=== PATIENT | male | born 1975 | race Caucasian/White ===

== ENCOUNTER 2019-06-20 14:01 | Emergency (ER) | payer OTHER, MEDICAID ==
[~2019-06-20] VITALS: Ht 160 cm; Wt 63.6 kg
[2019-06-20] MEDS ORDERED: IV NORMAL SALINE 1000ML BAG 1,000 ML IV SCH (14:28)
[2019-06-20] MEDS ORDERED: ONDANSETRON PF 4 MG/2 ML VIAL. IVP ONE (14:30)
--- NOTE | 2019-06-20 14:32 | PHYS DOC ---
Past Medical History Past Medical History: Hypothyroid Additional Past Medical Histor: Down syndrome Smoking: Cigarettes (The patient is a nonsmoker.) Adult General Chief Complaint Chief Complaint: SYNCOPE HPI HPI Patient is a 43-year-old male, with a history of Down's syndrome, who presents to the emergency room for evaluation. The patient's mother states that on Thursday he had some vomiting, but seemed okay since then, this morning he woke up and felt weak and lightheaded, and reportedly passed out. The patient's mother witnessed him fall to the ground, states he himself down gently, did not strike his head hard. She states he has not been quite himself today, seems a little off balance, and generally weak and fatigued. He is not in any fevers or chills, nasal congestion, diarrhea, does complain of some mild generalized abdominal discomfort. There are no alleviating or exacerbating factors to his symptoms. Review of Systems Review of Systems Constitutional: Denies fever or chills [] Eyes: Denies change in visual acuity, redness, or eye pain [] HENT: Denies nasal congestion or sore throat [] Respiratory: Denies cough or shortness of breath [] Cardiovascular: The patient denies any shortness of breath, chest pain, palpitations, or orthopnea[] GI: No additional information not addressed in HPI [] : Denies dysuria or hematuria [] Musculoskeletal: Denies back pain or joint pain [] Integument: Denies rash or skin lesions [] Neurologic: Denies focal weakness or sensory changes [] Endocrine: Denies polyuria or polydipsia [] All other systems were reviewed and found to be within normal limits, except as documented in this note. Current Medications Current Medications Current Medications Medications (Trade) Dose Ordered Sig/Vitor Start Time Stop Time Status Last Admin Dose Admin Ondansetron HCl (Zofran) 4 mg 1X ONCE 06/20/19 14:30 06/20/19 15:36 DC 06/20/19 15:43 4 MG Sodium Chloride 1,000 ml @ 1,000 mls/hr Q1H 06/20/19 14:28 06/20/19 15:36 DC 06/20/19 15:43 1,000 MLS/HR Allergies Allergies Allergies Coded Allergies Type Severity Reaction Last Updated Verified No Known Drug Allergies 06/20/19 No Physical Exam Physical Exam PHYSICAL EXAM: CONSTITUTIONAL: Well developed, well nourished HEAD: normocephalic, atraumatic EENT: PERRL, EOMI. Conjunctivae normal color, sclerae non-icteric; moist mucous membranes. NECK: Supple, non-tender; no meningismus.There is full, painless range of motion of the cervical spine, without any focal bony midline tenderness to palpation. LUNGS: Lungs CTA, breathing even and unlabored. Normal air movement. HEART: Regular rate and rhythm, no murmur CHEST: No deformity; non-tender ABDOMEN: The abdomen is soft, and non-tender, no masses or bruits. There is no reproducible abdominal tenderness to palpation. The abdominal exam is benign. EXTREM: Normal ROM; no deformity, no calf tenderness. Normal pulses palpable in all extremities. There is no pedal edema. SKIN: No rash; no diaphoresis NEURO: Alert; normal speech and cognition; CN's grossly intact; strength grossly intact without focal deficit. BACK: No CVA TTP.There is no bony tenderness to palpation of the thoracic or lumbar spine. Current Patient Data Vital Signs Vital Signs Date Time Temp Pulse Resp B/P (MAP) Pulse Ox O2 Delivery O2 Flow Rate FiO2 06/20/19 14:35 98.2 74 16 123/76 (92) 97 Room Air 98.2 Lab Values Laboratory Tests Test 06/20/19 15:27 06/20/19 15:48 White Blood Count 9.9 x10^3/uL (4.0-11.0) Red Blood Count 4.68 x10^6/uL (4.30-5.70) Hemoglobin 14.9 g/dL (13.0-17.5) Hematocrit 44.1 % (39.0-53.0) Mean Corpuscular Volume 94 fL (79-100) Mean Corpuscular Hemoglobin 32 pg (25-35) Mean Corpuscular Hemoglobin Concent 34 g/dL (31-37) Red Cell Distribution Width 14.6 % (11.5-14.5) H Platelet Count 242 x10^3/uL (140-400) Neutrophils (%) (Auto) 80 % (31-73) H Lymphocytes (%) (Auto) 14 % (24-48) L Monocytes (%) (Auto) 5 % (0-9) Eosinophils (%) (Auto) 0 % (0-3) Basophils (%) (Auto) 1 % (0-3) Neutrophils # (Auto) 7.9 x10^3/uL (1.8-7.7) H Lymphocytes # (Auto) 1.4 x10^3/uL (1.0-4.8) Monocytes # (Auto) 0.5 x10^3/uL (0.0-1.1) Eosinophils # (Auto) 0.0 x10^3/uL (0.0-0.7) Basophils # (Auto) 0.1 x10^3/uL (0.0-0.2) Sodium Level 141 mmol/L (136-145) Potassium Level 4.3 mmol/L (3.5-5.1) Chloride Level 104 mmol/L (98-107) Carbon Dioxide Level 29 mmol/L (21-32) Anion Gap 8 (6-14) Blood Urea Nitrogen 18 mg/dL (8-26) Creatinine 1.2 mg/dL (0.7-1.3) Estimated GFR (Cockcroft-Gault) 66.7 BUN/Creatinine Ratio 15 (6-20) Glucose Level 104 mg/dL (70-99) H Lactic Acid Level 1.5 mmol/L (0.4-2.0) Calcium Level 9.1 mg/dL (8.5-10.1) Magnesium Level 2.2 mg/dL (1.8-2.4) Total Bilirubin 2.1 mg/dL (0.2-1.0) H Aspartate Amino Transferase (AST) 31 U/L (15-37) Alanine Aminotransferase (ALT) 37 U/L (16-63) Alkaline Phosphatase 126 U/L (46-116) H Troponin I Quantitative < 0.017 ng/mL (0.000-0.055) Total Protein 6.9 g/dL (6.4-8.2) Albumin 3.2 g/dL (3.4-5.0) L Albumin/Globulin Ratio 0.9 (1.0-1.7) L Thyroid Stimulating Hormone (TSH) 1.218 uIU/mL (0.358-3.74) Free Thyroxine 1.71 ng/dL (0.76-1.46) H Influenza Type A Antigen Negative (NEGATIVE) Influenza Type B Antigen Negative (NEGATIVE) Urine Collection Type Unknown Urine Color Dk yellow Urine Clarity Clear Urine pH 6.0 Urine Specific [place] 1.025 Urine Protein Negative mg/dL (NEG-TRACE) Urine Glucose (UA) Negative mg/dL (NEG) Urine Ketones (Stick) Negative mg/dL (NEG) Urine Blood Negative (NEG) Urine Nitrite Negative (NEG) Urine Bilirubin Small (NEG) Urine Urobilinogen Dipstick 1.0 mg/dL (0.2 mg/dL) Urine Leukocyte Esterase Negative (NEG) Urine RBC Rare /HPF (0-2) Urine WBC 0 /HPF (0-4) Urine Squamous Epithelial Cells Occ /LPF Urine Bacteria 0 /HPF (0-FEW) Urine Mucus Mod /LPF Laboratory Tests 06/20/19 15:27 Laboratory Tests 06/20/19 15:27 EKG EKG normal sinus rhythm at a rate of 69 bpm, normal axis, normal intervals, nonspecific ST/T changes. Radiology/Procedures Radiology/Procedures PROCEDURE: PORTABLE CHEST 1V Study: PORTABLE CHEST 1V Indication: Syncope. Weakness. Comparison: None. Findings: Low lung volumes bilaterally with resultant bronchovascular crowding. No lobar infiltrate, pleural effusion or pneumothorax. Impression: No acute radiographic abnormality of the chest. [] PROCEDURE: CT HEAD WO CONTRAST CT HEAD WO CONTRAST History: Headache Comparison: None. Technique: Noncontrast CT imaging was performed of the head. Exposure: One or more of the following individualized dose reduction techniques were utilized for this examination: 1. Automated exposure control 2. Adjustment of the mA and/or kV according to patient size 3. Use of iterative reconstruction technique. Findings: No intracranial hemorrhage. No mass effect. No hydrocephalus. Cavum septum pellucidum and vergae. Posterior occipital scalp subcutaneous nodule measures 5 mm, likely epidermal inclusion cyst. Imaged orbits are unremarkable. Imaged paranasal sinuses and mastoid air cells are clear. No acute calvarial fracture. Impression: 1. No acute intracranial abnormality. Course & Med Decision Making Course & Med Decision Making Pertinent Labs and Imaging studies reviewed. (See chart for details) [] 5:15 PM: The patient's condition remains stable at this time. He is feeling better. His IV did infiltrate in his right forearm, was re-sited in his left arm, with confusion of the normal saline. She had approximately 100 mL out of his IV bag before infiltrated. I did discuss use of warm compresses with the patient's mother, the skin appears unremarkable. I discussed expectant management, the need for close PCP follow-up and return precautions. I discussed the importance of follow-up with the patient's PCP for recheck bilirubin. Dragon Disclaimer Dragon Disclaimer This electronic medical record was generated, in whole or in part, using a voice recognition dictation system. Departure Departure Impression: Primary Impression: Dizziness Disposition: HOME, SELF-CARE Condition: STABLE Referrals: GRISELDA BRAXTON MD (PCP) Patient Instructions: Dizziness, Syncope, Viral Syndrome Additional Instructions: Make sure you drink plenty of fluids and eat a full diet. Return to medical care for any new or worsening symptoms, development of increasing dizziness, lightheadedness, nausea, vomiting, fever, or any other new, or concerning symptoms. Your bilirubin was noted to be slightly elevated today, 2.1. Please follow-up with your primary care provider in the next 2-4 weeks, for recheck. ANGELA HARRY MD Jun 20, 2019 14:32
--- NOTE | 2019-06-20 14:49 | RAD ---
Study: PORTABLE CHEST 1V Indication: Syncope. Weakness. Comparison: None. Findings: Low lung volumes bilaterally with resultant bronchovascular crowding. No lobar infiltrate, pleural effusion or pneumothorax. Impression: No acute radiographic abnormality of the chest. Electronically signed by: SUREKHA LANDEROS MD (06/20/2019 2:45 PM) [facility] [email or web address]
--- NOTE | 2019-06-20 15:15 | RAD ---
CT HEAD WO CONTRAST History: Headache Comparison: None. Technique: Noncontrast CT imaging was performed of the head. Exposure: One or more of the following individualized dose reduction techniques were utilized for this examination: 1. Automated exposure control 2. Adjustment of the mA and/or kV according to patient size 3. Use of iterative reconstruction technique. Findings: No intracranial hemorrhage. No mass effect. No hydrocephalus. Cavum septum pellucidum and vergae. Posterior occipital scalp subcutaneous nodule measures 5 mm, likely epidermal inclusion cyst. Imaged orbits are unremarkable. Imaged paranasal sinuses and mastoid air cells are clear. No acute calvarial fracture. Impression: 1. No acute intracranial abnormality. Electronically signed by: Fransisco Ricks DO (06/20/2019 3:12 PM) [email or web address]
[2019-06-20 15:38] LABS: BASO # 0.1 x10^3/uL (0.0-0.2); BASO % 1 % (0-3); EOS % 0 % (0-3); HEMATOCRIT 44.1 % (39.0-53.0); HEMOGLOBIN 14.9 g/dL (13.0-17.5); LYMPH # 1.4 x10^3/uL (1.0-4.8); LYMPH % 14 % (24-48); MEAN CORPUSCULAR HEMOGLOBIN 32 pg (25-35); MEAN CORPUSCULAR HGB CONC 34 g/dL (31-37); MEAN CORPUSCULAR VOLUME 94 fL (79-100); MONO # 0.5 x10^3/uL (0.0-1.1); MONO % 5 % (0-9); NEUT # 7.9 x10^3/uL (1.8-7.7); NEUT % 80 % (31-73); PLATELET COUNT 242 x10^3/uL (140-400); RED BLOOD COUNT 4.68 x10^6/uL (4.30-5.70); RED CELL DISTRIBUTION WIDTH 14.6 % (11.5-14.5); WHITE BLOOD COUNT 9.9 x10^3/uL (4.0-11.0)
[2019-06-20 15:53] LABS: CALCIUM 9.1 mg/dL (8.5-10.1); CREATININE 1.2 mg/dL (0.7-1.3); GFR 66.7; POTASSIUM 4.3 mmol/L (3.5-5.1)
[2019-06-20 15:58] LABS: BILIRUBIN,URINE SMALL (NEG); CLARITY,URINE CLEAR; NITRITE,URINE NEGATIVE (NEG); PROTEIN,URINE NEGATIVE (NEG-TRACE)
[2019-06-20 15:59] LABS: ALBUMIN 3.2 g/dL (3.4-5.0); ALBUMIN/GLOBULIN RATIO 0.9 (1.0-1.7); MAGNESIUM 2.2 mg/dL (1.8-2.4); TOTAL BILIRUBIN 2.1 mg/dL (0.2-1.0); TOTAL PROTEIN 6.9 g/dL (6.4-8.2)
[2019-06-20 16:01] LABS: COLOR,URINE DK YELLOW
[2019-06-20 16:04] LABS: BACTERIA,URINE 0 /HPF (0-FEW); RBC,URINE RARE /HPF (0-2); SQUAMOUS EPITHELIAL CELL,UR OCC /LPF; WBC,URINE 0 /HPF (0-4)
[2019-06-20 16:06] LABS: INFLUENZA A PATIENT NEGATIVE (NEGATIVE); INFLUENZA B PATIENT NEGATIVE (NEGATIVE)
[2019-06-20 16:13] LABS: FREE T4 1.71 ng/dL (0.76-1.46); THYROID STIM HORMONE (TSH) 1.218 uIU/mL (0.358-3.74)
--- NOTE | 2019-06-20 16:52 | EKG ---
[facility] [address] [place] [address] Test Date: 2019-06-20 Test Time: 14:50:16 Pat Name: AVIS ESTEVES Department: Room: Gender: M [employer]: : 1975 Requested By: ANGELA HARRY Order Number: [id number] Reading MD: Measurements Intervals [place] Rate: 69 P: ID: QRS: 35 QRSD: 70 T: 27 QT: 364 QTc: 391 Interpretive Statements IRREGULAR RHYTHM, NO P-WAVE FOUND QRS(T) CONTOUR ABNORMALITY CONSIDER ANTEROSEPTAL MYOCARDIAL DAMAGE POSSIBLY ABNORMAL ECG RI6.01 No previous ECG available for comparison
[2019-06-20 17:30] VITALS: BP 110/68
== END 2019-06-20 17:33 | disposition home or self-care (01) ==
LOC: ER 14:01
DX: R42 Dizziness and giddiness (principal); R11.2 Nausea with vomiting, unspecified; R10.84 Generalized abdominal pain; E03.9 Hypothyroidism, unspecified; Q90.9 Down syndrome, unspecified
CPT/HCPCS: 36415; 70450; 71045; 80053; 81001; 83605; 83735; 84439; 84443; 84484; 85025; 87804; 93005; 96361; 96374; 99285; J2405; J7030

== ENCOUNTER 2020-01-07 22:07 | Emergency (ER) | payer OTHER, MEDICAID ==
[~2020-01-07] VITALS: Ht 154.9 cm; Wt 66.0 kg
[2020-01-07 23:00] LABS: BILIRUBIN,URINE SMALL (NEG); CLARITY,URINE TURBID; NITRITE,URINE NEGATIVE (NEG); PROTEIN,URINE 100 mg/dL (NEG-TRACE)
[2020-01-07 23:04] LABS: COLOR,URINE DK YELLOW
[2020-01-07 23:05] LABS: SQUAMOUS EPITHELIAL CELL,UR FEW /LPF; WBC,URINE TNTC /HPF (0-4)
[2020-01-07 23:06] LABS: RBC,URINE >40 /HPF (0-2)
[2020-01-07 23:07] LABS: BACTERIA,URINE MOD /HPF (0-FEW)
[2020-01-07] MEDS ORDERED: IV NORMAL SALINE 1000ML BAG 1,000 ML IV ONE (23:45)
[2020-01-07] MEDS ORDERED: cefTRIAXone IV Push 1 GM VIAL. IVP ONE (23:45)
[2020-01-07] MEDS ORDERED: ONDANSETRON PF 4 MG/2 ML VIAL. IVP ONE (23:45)
[2020-01-08] MEDS ORDERED: PHENAZOPYRIDINE 200 MG TABLET. PO ONE (01:00)
[2020-01-08 02:14] VITALS: BP 94/64
[2020-01-08] MEDS ORDERED: CEPH-264 PO (02:18)
[2020-01-08] MEDS ORDERED: PHEN100T82 PO (02:18)
[2020-01-08] MEDS ORDERED: ONDA4TAB7 PO (02:18)
--- NOTE | 2020-01-08 02:18 | PHYS DOC ---
Past Medical History Past Medical History: High Cholesterol, Hypothyroid Additional Past Medical Histor: Down syndrome Past Surgical History: Other Additional Past Surgical Histo: FOOT Smoking Status: Never Smoker Alcohol Use: None General Adult EDM: Chief Complaint: PAIN ON URINATION HPI: HPI: Patient is a 44-year-old male with past medical history of Down syndrome who presents to the emergency room complaining of lower abdominal pain and dysuria that started today. He also had some vomiting while at his father's today according to his mother. States that he was normal yesterday. History is very limited from the patient due to his baseline. Review of Systems: Review of Systems: Unable to obtain Heart Score: Risk Factors: Risk Factors: DM, Current or recent (<one month) smoker, HTN, HLP, family history of CAD, obesity. Risk Scores: Score 0 - 3: 2.5% MACE over next 6 weeks - Discharge Home Score 4 - 6: 20.3% MACE over next 6 weeks - Admit for Clinical Observation Score 7 - 10: 72.7% MACE over next 6 weeks - Early Invasive Strategies Current Medications: Current Medications Medications (Trade) Dose Ordered Sig/Vitor Start Time Stop Time Status Last Admin Dose Admin Ceftriaxone Sodium (Rocephin) 1 gm 1X ONCE 01/07/20 23:45 01/07/20 23:46 DC 01/08/20 00:41 1 GM Ondansetron HCl (Zofran) 4 mg 1X ONCE 01/07/20 23:45 01/07/20 23:46 DC 01/08/20 00:41 4 MG Phenazopyridine HCl (Pyridium) 200 mg 1X ONCE 01/08/20 01:00 01/08/20 01:01 DC 01/08/20 02:09 200 MG Sodium Chloride 1,000 ml @ 1,000 mls/hr 1X ONCE 01/07/20 23:45 01/08/20 00:44 DC 01/08/20 00:40 1,000 MLS/HR Allergies: Allergies: Allergies Coded Allergies Type Severity Reaction Last Updated Verified No Known Drug Allergies 06/20/19 No Physical Exam: PE: General: Awake, alert, NAD. Well Nourished, well hydrated. Cooperative HEENT: Atraumatic, EOMI, PERRL, airway patent, moist oral mucosa Neck: Supple, trachea midline Respiratory: CTA bilaterally, normal effort, no wheezing/crackles CV: RRR, no murmur, cap refill <2 GI: Soft, nondistended, suprapubic tenderness, no masses MSK: No obvious deformities Skin: Warm, dry, intact Neuro: Nonverbal, sensory and motor grossly intact, no focal deficits Psych: Normal affect, normal mood, not suicidal or homicidal Current Patient Data: Labs: Laboratory Tests Test 01/07/20 22:49 Urine Collection Type Unknown Urine Color Dk yellow Urine Clarity Turbid Urine pH 5.0 (<5.0-8.0) Urine Specific [place] 1.025 (1.000-1.030) Urine Protein 100 mg/dL (NEG-TRACE) Urine Glucose (UA) Negative mg/dL (NEG) Urine Ketones (Stick) Negative mg/dL (NEG) Urine Blood Large (NEG) Urine Nitrite Negative (NEG) Urine Bilirubin Small (NEG) Urine Urobilinogen Dipstick 1.0 mg/dL (0.2 mg/dL) Urine Leukocyte Esterase Large (NEG) Urine RBC >40 /HPF (0-2) Urine WBC Tntc /HPF (0-4) Urine Squamous Epithelial Cells Few /LPF Urine Bacteria Mod /HPF (0-FEW) Urine Mucus Mod /LPF Vital Signs: Vital Signs Date Time Temp Pulse Resp B/P (MAP) Pulse Ox O2 Delivery O2 Flow Rate FiO2 01/07/20 22:36 98.9 99 16 103/72 (82) 95 Room Air 98.9 EKG: EKG: [] Radiology/Procedures: Radiology/Procedures: [] Course & Med Decision Making: Course & Med Decision Making Pertinent Labs and Imaging studies reviewed. (See chart for details) Patient is a 44-year-old male who presents to the emergency room with abdominal pain, dysuria, and vomiting. Patient has not had any vomiting here in the emergency room. He was given fluids, nausea medicine, Rocephin here in the emergency room for a significant UTI. I did offer the family admission. Mom stated that she felt that he would do better at home if he was able to go home. Patient was p.o. challenged and did well with taking his medication. At this time patient does not meet any sepsis criteria. He will be discharged home on antibiotics with nausea medicine. I have discussed with him that if he develops a fever, does not improve, has any further vomiting he should return to the emergency room. Patient's test results and vitals while in the ED were fully reviewed and discussed with the patient. Patient is stable and at this time does not need admission to the hospital. We have discussed strict return precautions and the importance of following up with their Primary Care Physician. Patient stated understanding and was given an opportunity to ask any questions. Patient is in agreement with plan. Dragon Disclaimer: Dragon Disclaimer: This electronic medical record was generated, in whole or in part, using a voice recognition dictation system. Departure Departure Impression: Primary Impression: Urinary tract infection Disposition: HOME, SELF-CARE Condition: STABLE Referrals: GRISELDA BRAXTON MD (PCP) Patient Instructions: Urinary Tract Infection Scripts Phenazopyridine Hcl (PYRIDIUM) 100 Mg Tablet 100 MG PO TID for dysuria, #10 TAB Prov: LISETTE BETH MD 01/08/20 Ondansetron Hcl (ZOFRAN) 4 Mg Tablet 1 TAB PO PRN Q6-8HRS for nausea, #12 TAB Prov: LISETTE BETH MD 01/08/20 Cephalexin (KEFLEX) 500 Mg Capsule 1 CAP PO Q12HR for 14 Days, #28 CAP Prov: LISETTE BETH MD 01/08/20 Justicifation of Admission Dx: Justifications for Admission: Justification of Admission Dx: N/A LISETTE BETH MD Jan 08, 2020 02:18
== END 2020-01-08 02:36 | disposition home or self-care (01) ==
LOC: ER 22:07
DX: N39.0 Urinary tract infection, site not specified (principal); R10.30 Lower abdominal pain, unspecified; R11.2 Nausea with vomiting, unspecified; R30.0 Dysuria; E78.00 Pure hypercholesterolemia, unspecified; E03.9 Hypothyroidism, unspecified; Z98.890 Other specified postprocedural states
CPT/HCPCS: 81001; 96361; 96374; 96375; 99285; J0696; J2405; J7030

== ENCOUNTER → 2020-02-22 | Outpatient (CLI) | payer OTHER, MEDICAID ==
[~2020-02-22] MED LIST: CEPH-264 PO; ONDA4TAB7 PO; PHEN100T82 PO
--- NOTE | 2020-02-22 10:40 | RAD ---
Study: 1. US ABDOMEN COMPLETE 2. US PELVIS COMPLETE Indication: Lower abdominal and pelvic pain. Comparison: None. Findings: Abdomen: Degraded assessment due to bowel gas. The pancreas and aorta were not able to be well evaluated. Limited assessment of the spleen. The liver measures within normal limits for size. The adequately assessed hepatic parenchyma is unremarkable. Normal gallbladder wall thickness at 1.4 mm. Small adherent stone, sludge or polyp. No dedicated follow-up is needed based on size. No sonographic Maldonado's sign. Normal common bile duct caliber at 0.2 cm. The right kidney measures 9.2 cm in length and the left kidney 10.3 cm. Cortical thickness and echogenicity is within normal limits. No hydronephrosis. The spleen is difficult to evaluate but is measured at approximately 10 cm longitudinal, which is within normal limits. Unremarkable IVC at the liver. The main portal vein is patent with hepatopedal flow. Pelvis: No free fluid or fluid collection. No discrete mass. The bladder is decompressed limiting assessment. Nonvisualized appendix. Impression: Abdomen: 1. Degraded study due to bowel gas. Taking this into consideration, no acute abnormality is identified by sonography. Pelvis: 1. Decompressed urinary bladder limiting evaluation. No fluid collection, free fluid or visualized mass. The appendix was not able to be identified. Electronically signed by: SUREKHA LANDEROS MD (02/22/2020 10:37 AM) [id number]
== END ==
LOC: US 09:30
PROVIDERS: ATTEND Family Medicine
DX: R10.2 Pelvic and perineal pain (principal)
CPT/HCPCS: 76700; 76856